=== PATIENT | male | born 1960 | race Caucasian/White ===

== ENCOUNTER 2024-05-24 15:49 | Outpatient (CLI) | payer MEDICARE, SELFPAY ==
--- NOTE | ~2024-05-24 | XR_ITS ---
EXAM: XR hand LT min 3V, XR wrist LT min 3V DATE: 05/24/2024 16:12 HISTORY: FALL/ULNAR SIDE PAIN . COMPARISON: None available. FINDINGS: Normal mineralization. Small ossific fragment adjacent to the lateral base of the third pr oximal phalange. No lytic or blastic lesion. Mild scattered degenerative changes. Subchondral cyst in the scaphoid. No erosion or periosteal change. Soft tissues within normal limits. IMPRESSION: Small ossific fragment adjacent to the lateral base of the third proximal phalange, may r epresent degenerative change or small avulsion fracture. Correlate for pain/tenderness over the third MCP joint. Otherwise, no acute osseous finding in the left hand or wrist. Mild polyarticular osteoar thritic changes. Reviewed, dictated and finalized at location K. IMPRESSION: Small ossific fragment adjacent to the lateral base of the third pr oximal phalange, may represent degenerative change or small avulsion fracture. Correlate for pain/tenderness over the third MCP joint. Otherwise, no acute oss eous finding in the left hand or wrist. Mild polyarticular osteoarthritic packer es.
== END 2024-05-24 15:50 | disposition home or self-care (01) ==
PROVIDERS: PCP Family Medicine; Visit Provider Registered Nurse
DX: M25.532 Pain in left wrist (principal)
CPT/HCPCS: 73110; 73130